=== PATIENT | male | born 1940 | race Caucasian/White ===

== ENCOUNTER 2017-09-22 12:28 | Emergency (ER) | payer OTHER ==
[~2017-09-22] VITALS: Ht 177.8 cm; Wt 104.2 kg
[~2017-09-22 12:28] MED LIST: ASPIRIN325 MG PO; CIPRO500 MG PO; DAILY VALUE1 EACH PO; FLAGYL500 MG PO; FLORASTOR250 MG PO; LEVOFLOXACIN500 MG PO; TAMSULOSIN HCL0.4 MG PO
[2017-09-22 15:46] VITALS: BP 188/77
== END 2017-09-22 15:49 | disposition home or self-care (01) ==
LOC: EME 12:28
DX: H47.10 Unspecified papilledema (principal); Z79.82 Long term (current) use of aspirin
CPT/HCPCS: 70450; 99281; 99284